=== PATIENT | male | born 2000 | race Caucasian/White ===

== ENCOUNTER 2022-05-07 17:57 | Emergency (ER) | payer MEDICAID, OTHER ==
[~2022-05-07] VITALS: Ht 167.6 cm; Wt 73.0 kg
[2022-05-07 21:45] VITALS: BP 132/77
[2022-05-07] MEDS ORDERED: SODIUM CHLORIDE 0.9% 1,000 ML IV ONE (21:45)
[2022-05-07] MEDS ORDERED: KETOROLAC 15MG/ML VIAL IV ONE (21:45)
[2022-05-07 23:06] LABS: HEMOGLOBIN. 14.3 g/dL (14.0-18.0); MEAN CORPUSCULAR HEMOGLOBIN 29.3 pg (28.0-32.0); MEAN PLATELET VOLUME 8.4 fl (7.4-10.4); PLATELET 176 x1000/uL (130-400); RED BLOOD CELL COUNT 4.89 mill/uL (4.7-6.1); RED CELL DISTRIBUTION WIDTH 13.9 % (11.6-14.6)
[2022-05-07 23:15] LABS: CHLORIDE 103 mEq/L (98-107)
[2022-05-07 23:20] LABS: PLATELET ESTIMATE NORMAL
[2022-05-07 23:57] LABS: MONOTEST NEGATIVE (NEGATIVE)
[2022-05-08] MEDS ORDERED: DEXAMETHASONE 4MG/ML 1ML VIAL IV NR (00:45)
[2022-05-08] MEDS ORDERED: IBUP-2029 MT (01:07)
== END 2022-05-08 01:27 | disposition home or self-care (01) ==
LOC: ER 17:57
DX: J02.9 Acute pharyngitis, unspecified (principal); B34.9 Viral infection, unspecified; R59.1 Generalized enlarged lymph nodes; Z20.822 Contact with and (suspected) exposure to COVID-19
CPT/HCPCS: 36415; 71045; 76881; 80053; 85025; 86308; 87070; 87426; 87430; 87804; 96374; 96375; 99284; C9803; J1100; J1885; J7030; Z7610